=== PATIENT | female | born 1940 | race Asian ===

== ENCOUNTER → 2016-06-13 | Outpatient (CLI) | payer MEDICAID ==
[~2016-06-13] MED LIST: ADV250 IH; ALBU8.5H IH; AMLO-511 PO; ASPI-556 PO; ATOR20TA86 PO; BENA20 PO; CALC1TAB15 PO; CARV12 PO; LANS30 PO; LEVO5TAB13 PO; RALO60 PO; TIOT185 IH; VITAD1000 PO
== END | disposition home or self-care (01) ==
LOC: RADPV 11:02
PROVIDERS: ATTEND Internal Medicine Critical Care Medicine
DX: J44.9 Chronic obstructive pulmonary disease, unspecified (principal); R91.8 Other nonspecific abnormal finding of lung field; I70.0 Atherosclerosis of aorta
CPT/HCPCS: 71020